=== PATIENT | male | born 1985 | race Caucasian/White ===

== ENCOUNTER 2021-05-29 03:45 | Emergency (ER) | payer OTHER ==
[2021-05-29 05:03] VITALS: BP 129/91; PULSE 108; TEMP 100.4; BMI 25.7
== END 2021-05-29 06:45 | disposition left against medical advice (07) ==
LOC: JER 03:45
DX: M54.2 Cervicalgia (principal); W19.XXXA Unspecified fall, initial encounter; Y92.9 Unspecified place or not applicable
CPT/HCPCS: 99283-25